=== PATIENT | male | born 1945 | race Caucasian/White ===

== ENCOUNTER 2024-04-12 12:13 | Outpatient (CLI) | payer MEDICARE, OTHER | END 2024-04-12 23:59 | disposition left against medical advice (07) | LOC: EMS 12:13 | DX: R22.0 Localized swelling, mass and lump, head (principal) ==

== ENCOUNTER 2024-05-13 17:32 | Outpatient (CLI) | payer MEDICARE, OTHER | END 2024-05-13 23:59 | disposition left against medical advice (07) | LOC: EMS 17:32 | DX: R60.0 Localized edema (principal); M79.672 Pain in left foot; R26.2 Difficulty in walking, not elsewhere classified ==

== ENCOUNTER 2024-05-19 22:39 | Outpatient (CLI) | payer MEDICARE, OTHER | END 2024-05-19 22:40 | disposition critical access hospital (66) | LOC: EMS 22:39 | DX: R60.0 Localized edema (principal); R53.1 Weakness | CPT/HCPCS: A0425; A0429 ==

== ENCOUNTER 2024-05-19 22:54 | Emergency (ER) | payer MEDICARE, OTHER ==
--- NOTE | 2024-05-19 23:12 | ED Physician Documentation ---
History of Present Illness - Stated complaint Stated Complaint: GEN SWELLING - History obtained from History obtained from: Patient, EMS - Additonal information Additional information: 78-year-old male presents by EMS from home for evaluation of lower extremity swelling and a fall. Patient apparently noticed swelling several weeks ago but declined transport by 911 at that time. This evening patient had a ground-level fall. He was found on the ground by his family after approximately 1 hour not being seen. Patient did not remember the fall. He was noted to have some puffiness around his face and eye that improved while sitting upright in the ambulance bay. Does not take any blood thinners. Reported drinking "10 ounces of scotch" to EMS staff during transport. On arrival patient denies any complaints. States he lives alone as a , but his niece visits him daily. PD PAST MEDICAL HISTORY - Past Medical History Cardiovascular: Hypertension Respiratory: Asthma Endocrine/Autoimmune: Type 2 diabetes - Past Surgical History Past Surgical History: Yes - Present Medications Home Medications: Ambulatory Orders Medication Instructions Recorded Confirmed Thiamine [Vitamin B-1] 100 mg PO DAILY #30 tablet 03/11/24 05/20/24 Amlodipine Besylate [Norvasc] 5 mg PO DAILY 05/20/24 05/20/24 Atorvastatin [Lipitor] 10 mg PO DAILY 05/20/24 05/20/24 Escitalopram Oxalate [Lexapro] 5 mg PO DAILY 05/20/24 05/20/24 Metoprolol Succinate [Toprol Xl] 25 mg PO DAILY 05/20/24 05/20/24 - Allergies Allergies/Adverse Reactions: Allergies Allergy/AdvReac Type Severity Reaction Status Date / Time No Known Drug Allergies Allergy Verified 05/19/24 23:11 - Social History Does the pt smoke?: No Smoking Status: Never smoker Does the pt drink ETOH?: Yes Does the pt have substance abuse?: No - Immunizations Immunizations are current?: No - POLST Patient has POLST: No Results - Vitals Vitals: Oxygen O2 Source Room air - Labs Labs: Laboratory Tests 05/19/24 05/19/24 05/19/24 23:23 23:23 23:23 WBC 14.4 H RBC 3.94 L Hgb 12.9 L Hct 36.5 L MCV 92.6 MCH 32.7 H MCHC 35.3 RDW 13.1 Plt Count 235 MPV 11.0 Neut # (Auto) 11.5 H Lymph # (Auto) 0.8 L Lyman # (Auto) 1.8 H Eos # (Auto) 0.2 Baso # (Auto) 0.0 Absolute Nucleated RBC 0.00 Band Neuts % (Manual) Not Reportable Abnorm Lymph % (Manual) Not Reportable Nucleated RBC % 0.0 Neutrophils # (Manual) Not Reportable Lymphocytes # (Manual) Not Reportable Monocytes # (Manual) Not Reportable Eosinophils # (Manual) Not Reportable Basophils # (Manual) Not Reportable Differential Comment MANUAL=AUTO DIFF Platelet Estimate NORMAL (130-450,000) Platelet Morphology 1+ LARGE PLATELETS RBC Morph Micro Appear NORMAL APPEARANCE PT 14.5 H INR 1.3 H Sodium 126 L Potassium 4.2 Chloride 94 L Carbon Dioxide 19 L Anion Gap 13.0 BUN 28 H Creatinine 1.2 Estimated GFR (MDRD) 58 L Glucose 123 H Calcium 9.2 Magnesium 1.8 Total Bilirubin 1.0 AST 25 ALT 19 Alkaline Phosphatase 104 Troponin I High Sens 328.9 H* B-Natriuretic Peptide Total Protein 6.6 Albumin 3.5 Globulin 3.1 Albumin/Globulin Ratio 1.1 Urine Color Urine Clarity Urine pH Ur Specific [place] Urine Protein Urine Glucose (UA) Urine Ketones Urine Occult Blood Urine Nitrite Urine Bilirubin Urine Urobilinogen Ur Leukocyte Esterase Urine RBC Urine WBC Ur Squamous Epith Cells Urine Bacteria Urine Culture Comments Ethyl Alcohol 52.4 05/19/24 05/20/24 05/20/24 23:23 02:00 03:19 WBC RBC Hgb Hct MCV MCH MCHC RDW Plt Count MPV Neut # (Auto) Lymph # (Auto) Lyman # (Auto) Eos # (Auto) Baso # (Auto) Absolute Nucleated RBC Band Neuts % (Manual) Abnorm Lymph % (Manual) Nucleated RBC % Neutrophils # (Manual) Lymphocytes # (Manual) Monocytes # (Manual) Eosinophils # (Manual) Basophils # (Manual) Differential Comment Platelet Estimate Platelet Morphology RBC Morph Micro Appear PT INR Sodium Potassium Chloride Carbon Dioxide Anion Gap BUN Creatinine Estimated GFR (MDRD) Glucose Calcium Magnesium Total Bilirubin AST ALT Alkaline Phosphatase Troponin I High Sens 346.6 H* B-Natriuretic Peptide 1399 H Total Protein Albumin Globulin Albumin/Globulin Ratio Urine Color YELLOW Urine Clarity HAZY Urine pH 5.5 Ur Specific [place] 1.015 Urine Protein TRACE Urine Glucose (UA) NEGATIVE Urine Ketones NEGATIVE Urine Occult Blood LARGE H Urine Nitrite NEGATIVE Urine Bilirubin NEGATIVE Urine Urobilinogen 0.2 (NORMAL) Ur Leukocyte Esterase NEGATIVE Urine RBC 11-25 H Urine WBC 0-3 Ur Squamous Epith Cells NONE SEEN Urine Bacteria None Seen Urine Culture Comments NOT INDICATED Ethyl Alcohol PD Medical Decision Making - ED course Complexity details: reviewed results, re-evaluated patient, considered differential, d/w patient ED course: Patient presenting for generalized edema, especially in lower extremities. Patient not complaining of any shortness of breath or chest pain at this time. Laboratory work and imaging to be ordered. Patient states that he has not sought medical care in many years and only recently started taking a small amount of medications after a telehealth appointment. CXR shows pleural effusion and pulmonary edema. Empiric IV Lasix ordered. Initial troponin 329. BNP 1399. EKG is nonischemic, patient states that he has not had any chest pain that he can recall. Question if this is secondary to volume overload. Will obtain repeat troponin after diuresis. Patient seems to be diruesing well at this time. Martinez placed for accurate urine output measurements. Patient continues to be diuresing well after Lasix, however urine in martinez bag now appears to be bright red and bloody. Nursing reports martinez insertion atraumatic, but there did appear to be a few small clots on initial insertion. Repeat troponin 347. Patient continues to deny any chest pain. Case discussed with on-call cardiology Dr. Cook of [facility] cardiology, who recommended transfer for ischemic workup. Patient in agreement at this time. CT abdomen/pelvis ordered for assessment of hematuria. Care of patient signed to daytime physician. Departure - Departure Disposition: 02 Transfer Acute Care Hosp Clinical Impression: Elevated troponin, NSTEMI (non-ST elevated myocardial infarction), Anasarca, Pleural effusion Edema Qualifiers: Edema type: unspecified Qualified Code(s): R60.9 - Edema, unspecified Condition: Stable Forms: PCP List Discharge Date/Time: 05/20/24 09:40
[2024-05-19 23:28] LABS: BASOPHILS % (AUTO) 0.3 %; EOSINOPHILS # (AUTO) 0.2 10^3/uL (0.0-0.7); EOSINOPHILS % (AUTO) 1.1 %; HCT - HEMATOCRIT 36.5 % (42.0-52.0); HGB - HEMOGLOBIN 12.9 g/dL (14.0-18.0); LYMPHOCYTES # (AUTO) 0.8 10^3/uL (1.5-3.5); LYMPHOCYTES % (AUTO) 5.8 %; MEAN CORPUSCULAR HEMOGLOBIN 32.7 pg (27.0-31.0); MEAN CORPUSCULAR HGB CONC 35.3 g/dL (32.0-36.0); MEAN CORPUSCULAR VOLUME 92.6 fL (80.0-94.0); MONOCYTES # (AUTO) 1.8 10^3/uL (0.0-1.0); MONOCYTES % (AUTO) 12.3 %; NEUTROPHILS # (AUTO) 11.5 10^3/uL (1.5-6.6); NEUTROPHILS % (AUTO) 79.9 %; PLT - PLATELET COUNT 235 10^3/uL (130-450); RED BLOOD COUNT 3.94 10^6/uL (4.70-6.10); RED CELL DISTRIBUTION WIDTH 13.1 % (12.0-15.0); WHITE BLOOD COUNT 14.4 x10^3/uL (4.8-10.8)
[2024-05-19 23:40] LABS: MAGNESIUM 1.8 mg/dL (1.7-2.3)
[2024-05-19 23:46] LABS: ALBUMIN 3.5 g/dL (3.2-5.5); ALBUMIN/GLOBULIN RATIO 1.1 (1.0-2.2); CALCIUM 9.2 mg/dL (8.5-10.3); CREATININE 1.2 mg/dL (0.6-1.3); ETOH - ETHANOL 52.4 mg/dL; POTASSIUM 4.2 mmol/L (3.5-4.5); TOTAL PROTEIN 6.6 g/dL (6.4-8.9)
[2024-05-19 23:49] LABS: INR 1.3 (0.8-1.2); PT - PROTHROMBIN TIME 14.5 secs (9.9-12.6)
[2024-05-19 23:57] LABS: TROPONIN I HIGH SENSITIVITY 328.9 ng/L (2.3-19.7)
--- NOTE | 2024-05-19 23:59 | CT Report ---
PROCEDURE: Head WO INDICATIONS: GLF, POSS HEAD INJ TECHNIQUE: Noncontrast 4.5 mm thick angled axial sections acquired from the foramen magnum to the vertex. For r adiation dose reduction, the following was used: automated exposure control, adjustment of mA and/or kV according to patient size. COMPARISON: CT head 03/11/2024. FINDINGS: Image quality: Excellent. CSF spaces: Basal cisterns are patent. No extra-axial fluid collections. Ventricles are symmetric in size and shape. Brain: No midline shift. No intracranial masses or hemorrhage. Hypodensities in the subcortical and periventricular white matter are most commonly seen in setting of chronic microvascular ischemic javy nges. Age-related cerebral and cerebellar volume loss is seen. Intracranial vascular calcifications a re noted in the internal carotid arteries. Skull and face: Calvarium and visualized facial bones are intact, without suspicious lesions. Sinuses: Mild mucosal thickening in the ethmoid air cells bilaterally. Paranasal sinuses and mastoid air cells are otherwise clear. IMPRESSION: No acute intracranial pathology. Reviewed by: Camden Menon MD on 05/19/2024 11:57 PM PDT Approved by: Camden Menon MD on 05/19/2024 11:57 PM PDT Station ID: [id number]
--- NOTE | 2024-05-20 | XRAY Report ---
PROCEDURE: Chest 1V INDICATIONS: EDEMA TECHNIQUE: One view of the chest was acquired. COMPARISON: None. FINDINGS: Surgical changes and devices: None. Lungs and pleura: Small to moderate right pleural effusion. Right basilar atelectasis. Bilateral int erstitial prominence. No pneumothorax. Mediastinum: The cardiac silhouette is enlarged. Bones and chest wall: No suspicious bony lesions. Overlying soft tissues appear unremarkable. IMPRESSION: Small to moderate right pleural effusion with right basilar atelectasis. Bilateral interstitial promi nence is suspicious for pulmonary edema. Mild cardiomegaly. Reviewed by: Camden Menon MD on 05/19/2024 11:58 PM PDT Approved by: Camden Menon MD on 05/19/2024 11:58 PM PDT Station ID: [id number]
[2024-05-20 00:03] LABS: PLATELET ESTIMATE, MANUAL NORMAL (130-450,000) (NORMAL); PLATELET MORPHOLOGY 1+ LARGE PLATELETS (NORMAL); RBC MORPHOLOGY (MULTIPLE) NORMAL APPEARANCE (NORMAL)
[2024-05-20 00:04] LABS: DIFFERENTIAL COMMENT MANUAL=AUTO DIFF
[2024-05-20] MEDS: FUROSEMIDE 40 MG/4 ML VIAL IVP STA (00:07)
[2024-05-20] MEDS: LIDOCAINE JELLY 2% 6 ML JEL.PF.APP TOP STA (01:52)
[2024-05-20] MEDS: FUROSEMIDE 20 MG/2 ML VIAL IVP STA (02:17)
[2024-05-20] MEDS ORDERED: iohexoL-300 100 ML VIAL ONE (05:21)
[2024-05-20] MEDS: ASPIRIN CHEW 81 MG TABLET PO STA (05:27)
[2024-05-20 05:40] LABS: BILIRUBIN,URINE NEGATIVE (NEGATIVE); GLUCOSE, URINE (UA) NEGATIVE (NEGATIVE); KETONES,URINE (UA) NEGATIVE (NEGATIVE); LEUKOCYTE ESTERASE, URINE NEGATIVE (NEGATIVE); NITRITE,URINE NEGATIVE (NEGATIVE); OCCULT BLOOD,URINE LARGE (NEGATIVE); PH,URINE 5.5 PH (5.0-7.5); PROTEIN,URINE TRACE mg/dL (NEGATIVE); UROBILINOGEN,URINE 0.2 (NORMAL) E.U./dL (NORMAL)
[2024-05-20 05:42] LABS: CLARITY,URINE HAZY (CLEAR)
[2024-05-20 05:46] LABS: BACTERIA,URINE None Seen /HPF (None Seen); SQUAMOUS EPITHELIAL CELL,UR NONE SEEN (<= Few); WBC,URINE 0-3 /HPF (0-3)
[2024-05-20] MEDS: iohexoL-300 100 ML VIAL IVP ONE (05:54)
--- NOTE | 2024-05-20 08:00 | ED Physician Documentation ---
ED Addendum - Addendum Addendum: 05/20/24 07:[address] Pelayo, hospitalist at [facility], who graciously accepts in transfer. Reviewed the patient's case and findings. Patient is excepted for transfer pending bed availability. COBRA forms completed. Departure - Departure Disposition: 02 Transfer Acute Care Hosp Clinical Impression: Elevated troponin, NSTEMI (non-ST elevated myocardial infarction), Anasarca, Pleural effusion Edema Qualifiers: Edema type: unspecified Qualified Code(s): R60.9 - Edema, unspecified Condition: Stable Forms: PCP List
[2024-05-20 08:47] VITALS: BP 119/69; O2SAT 93
--- NOTE | 2024-05-20 10:23 | CT Report ---
PROCEDURE: Abdomen/Pelvis W INDICATIONS: gross hematuria CONTRAST: Omni 300,100mls TECHNIQUE: After the administration of intravenous contrast, a CT scan of the abdomen and pelvis was performed. Images were recorded and evaluated at appropriate window settings. Reformats: coronal and sagittal. F or radiation dose reduction, the following was used: automated exposure control, adjustment of mA and /or kV according to patient size. COMPARISON: None. FINDINGS: Image quality: Diagnostic. Lower chest: Small to moderate right pleural effusion and small left pleural effusion are seen with r ight lower lobe infiltrate versus atelectasis and dependent atelectasis in posterior aspect of left l ower lobe. Heart size is enlarged, no pericardial effusion. Liver: No solid mass. Moderate hepatic steatosis is seen. Gallbladder: Cholelithiasis without wall thickening. Biliary tree: No intrahepatic or extrahepatic dilation, accounting for age. Spleen: No splenomegaly. Pancreas: No pancreatic ductal dilation. Adrenals: No adrenal nodule. Kidneys and ureters: No hydronephrosis. No renal cystic lesion which requires follow up. No solid mas s. Stomach, bowel and peritoneum: Small amount of ascites fluid adjacent to liver and spleen. No gross f ree air. There is no bowel obstruction or abnormal bowel wall thickening. Normal appendix is seen in right lower quadrant. No abscess collection. Mild mesenteric edema is noted. Lymph nodes: No central or retroperitoneal adenopathy. Vessels: No infrarenal aortic aneurysm. Patent portal vein. PELVIS Reproductive organs: Brachytherapy seeds are noted within prostate gland.. Bladder: Vu catheter is seen in a decompressed urinary bladder. There is suggestion of diffuse thanh dder wall thickening and perivesical fat stranding concerning for cystitis. Pelvic lymph nodes: No pelvic adenopathy by size criteria. Bones: No aggressive osseous abnormality. Age indeterminant anterior wedge compression deformity invo lving superior endplate of L2 vertebral body. Degenerative disc disease throughout lumbar spine is se en. Other: No significant ventral or inguinal hernia. Generalized anasarca is seen. IMPRESSION: 1. Vu catheter in decompressed urinary bladder with diffuse bladder wall thickening and surroundin g inflammatory changes concerning for cystitis. 2. No renal stones or hydronephrosis. No CT evidence of pyelonephritis. 3. Hepatic steatosis. Small amount of ascites fluid. Mesenteric edema and anasarca. 4. Right greater than left bilateral pleural effusion with suggestion of posterior right lower lobe i nfiltrate versus atelectasis. 5. Contracted gallbladder with gallstones. No definite CT evidence of acute cholecystitis. 6. No bowel obstruction or abnormal bowel wall thickening. Normal appendix. No peritoneal free air. 7. Age-indeterminate mild anterior wedge compression deformity at L2 level with likely large Schmorl' s node involving superior endplate of L2 suggests clinical correlation. Comparison with prior study c an be helpful. Findings are concordant with preliminary interpretation provided by [facility]. Reviewed by: Derrick Alfonso MD on 05/20/2024 10:21 AM PDT Approved by: Derrick Alfonso MD on 05/20/2024 10:21 AM PDT Station ID: [id number]
== END 2024-05-20 09:40 | disposition short-term general hospital (02) ==
LOC: EDUNIT# → ED 22:54
DX: I21.4 Non-ST elevation (NSTEMI) myocardial infarction (principal); R60.1 Generalized edema; J90 Pleural effusion, not elsewhere classified; W18.39XA Other fall on same level, initial encounter; R79.89 Other specified abnormal findings of blood chemistry; I10 Essential (primary) hypertension; J45.909 Unspecified asthma, uncomplicated; E11.9 Type 2 diabetes mellitus without complications
CPT/HCPCS: 36415; 51702; 70450; 71045; 74177; 80053; 81001; 83735; 83880; 84484; 85025; 85610; 93005; 96374; 96376; 99285; A9270; G0480; Q9967; 82077; 87086